=== PATIENT | female | born 1950 | race Caucasian/White ===

== ENCOUNTER 2021-02-04 12:20 | Emergency (ER) | payer OTHER, SELFPAY ==
[2021-02-04] VITALS (9 sets, daily range): BP systolic 98–125; BP diastolic 53–67; PULSE 76–104; RESP 18; TEMP 36.8; O2SAT 95–99
--- NOTE | 2021-02-04 12:54 | DI.RAD.S_ITS ---
PROCEDURE: XR RIBS RT MIN 3V W CXR 1V INDICATIONS: fall, right rib pain TECHNIQUE: 2 views of the right ribs were acquired, along with a single view chest. COMPARISON: None. FINDINGS: Surgical changes and devices: None. Bones and chest wall: No fractures or dislocations. No suspicious bony lesions. Overlying soft tissues appear unremarkable. Lungs and pleura: No pleural effusions or pneumothorax. Lungs appear clear. Mediastinum: Mediastinal contours appear normal. Heart size is normal. IMPRESSION: Mild irregularity is seen at the lateral lower right ribs, best seen on oblique view of the ribs rather than on the straight AP view. Acute rib fracture is presumed in this clinical circumstance. Dictated by: Brant Gutierrez M.D. on 02/04/2021 at 13:37 Approved by: Brant Gutierrez M.D. on 02/04/2021 at 13:38
--- NOTE | 2021-02-04 13:17 | ED_ITS ---
HPI - Fall General Chief Complaint: Fall Stated Complaint: Fall, Hit Ribs on Rt Side Time Seen by Provider: 02/04/21 12:24 Source: patient Mode of arrival: Ambulatory History of Present Illness HPI Narrative: 70-year-old female with a history of chronic pain in her left hip presents with a chief complaint of severe right-sided rib pain after a fall. She was on her bow and it rocked in the ways and threw her onto the banister. She denies any head or neck pain. She has severe right-sided rib pain. She denies any cough, hemoptysis, nausea, vomiting or diarrhea. Her pain is worse when she moves, takes a deep breath and improves with rest. Related Data Home Medications Medication Instructions Recorded Confirmed morphine 30 mg capsule mg PO 02/04/21 Previous Rx's Medication Instructions Recorded ketorolac 10 mg tablet 10 mg PO Q6H PRN #14 tab 02/04/21 lidocaine 5 % topical patch 1 patch TOP DAILY #15 each 02/04/21 (Lidoderm) Allergies Allergy/AdvReac Type Severity Reaction Status Date / Time No Known Drug Allergies Allergy Verified 02/04/21 12:54 Review of Systems Review of Systems Narrative: GENERAL: Denies chills, fatigue, malaise, fever, sweats. HEENT: Denies sinus pain, ear pain, sore throat, difficulty swallowing, dizziness. RESPIRATORY: Denies dyspnea, cough, wheezing, hemoptysis, sputum. CARDIOVASCULAR: see HPI GASTROINTESTINAL: Denies nausea, vomiting, abdominal pain, diarrhea, constipation, melena. : Denies dysuria, frequency, incontinence, hematuria, urinary retention. MUSCULOSKELETAL: denies weakness, joint pain, or bony pain SKIN: Denies rash, skin lesions, or other NEUROLOGIC: Denies weakness, headache, numbness, change in speech, confusion, seizures, incoordination. PSYCHIATRIC: No concerning psychosocial issues. 12 point review of systems is negative except for those stated above Patient History Social History Smoking Status: Never smoker Smoking Status: Never smoker alcohol intake frequency: 0-2 drinks per day Substance Use Type: does not use Exam Narrative Exam Narrative: GENERAL: [70] year old patient appears stated age. Well- developed patient, in mild distress. HEAD: Atraumatic. Normocephalic. EYES: Pupils equal round and reactive. Extraocular motions intact. No scleral icterus. No injection or drainage. ENT: Nose without bleeding, purulent drainage. Throat without erythema, tonsillar hypertrophy or exudate. Airway patent. NECK: Trachea midline. Non tender CARDIOVASCULAR: Regular rate and rhythm without murmurs, gallops, or rubs. Right lower lateral ribs tender to palpate, no crepitance, erythema or subcutaneous emphysema RESPIRATORY: Clear to auscultation. Breath sounds equal bilaterally. No wheezes, rales, or rhonchi. GASTROINTESTINAL: Abdomen soft, non-tender, nondistended. EXTREMITIES: No edema or joint tenderness. BACK: Nontender without deformity or crepitance. No flank tenderness. NEURO: AOx3. SKIN: No rash or erythema of visible areas Initial Vital Signs Initial Vital Signs: Vital Signs Temperature 98.3 F 02/04/21 12:50 Pulse Rate 76 02/04/21 12:50 Respiratory Rate 18 02/04/21 12:50 Blood Pressure 99/56 L 02/04/21 12:50 Pulse Oximetry 99 02/04/21 12:50 Course Orders Ordered: Discontinued Medications Acetaminophen (Acetaminophen 325 Mg Tablet) 650 mg PO NOW ONE Stop: 02/04/21 13:51 Last Admin: 02/04/21 14:06 Dose: 650 mg Documented by: SADAF Lidocaine (Lidocaine Patch 1 Each Adh..Patch) 1 each TOP NOW ONE Stop: 02/04/21 13:57 Last Admin: 02/04/21 14:06 Dose: 1 each Documented by: SADAF Consultations Consultation #1: Call placed to patient's pain management, message left Vital Signs Vital signs: Vital Signs - 8 hr 02/04/21 12:50 02/04/21 12:55 02/04/21 12:56 Temperature 98.3 F Pulse Rate 76 104 H Pulse Rate [Orthostatic Lying] 101 H Pulse Rate [Orthostatic Sitting] 104 H Pulse Rate [Orthostatic Standing] 104 H Respiratory Rate 18 Blood Pressure 99/56 L 117/59 L Blood Pressure [Orthostatic Lying] 125/65 Blood Pressure [Orthostatic Sitting] 117/59 L Blood Pressure [Orthostatic Standing] 98/53 L Pulse Oximetry 99 97 02/04/21 12:57 02/04/21 12:59 02/04/21 13:00 Temperature Pulse Rate 104 H 101 H 95 H Pulse Rate [Orthostatic Lying] Pulse Rate [Orthostatic Sitting] Pulse Rate [Orthostatic Standing] Respiratory Rate Blood Pressure 98/53 L 125/65 Blood Pressure [Orthostatic Lying] Blood Pressure [Orthostatic Sitting] Blood Pressure [Orthostatic Standing] Pulse Oximetry 95 95 95 02/04/21 13:30 02/04/21 14:00 02/04/21 14:14 Temperature Pulse Rate 88 84 77 Pulse Rate [Orthostatic Lying] Pulse Rate [Orthostatic Sitting] Pulse Rate [Orthostatic Standing] Respiratory Rate Blood Pressure 122/67 Blood Pressure [Orthostatic Lying] Blood Pressure [Orthostatic Sitting] Blood Pressure [Orthostatic Standing] Pulse Oximetry 96 98 98 MDM - Fall Imaging Data Chest x-ray: Radiologist's Impression: [address] [id number] ReportSigned Patient: Annie Marques BMR#: [id number]: [id number]:[id number]/Sex: 70 / FDate of Service: 02/04/21Loc: EDAccession Number: [id number] Procedure: XR ribs RT min 3V w CXR1V Ordering Provider: Keith Waite D.O. PROCEDURE: XR RIBS RT MIN 3V W CXR 1V INDICATIONS: fall, right rib pain TECHNIQUE: 2 views of the right ribs were acquired, along with a single view chest. COMPARISON: None. FINDINGS: Surgical changes and devices: None. Bones and chest wall: No fractures or dislocations. No suspicious bony lesions. Overlying soft tissues appear unremarkable. Lungs and pleura: No pleural effusions or pneumothorax. Lungs appear clear. Mediastinum: Mediastinal contours appear normal. Heart size is normal. IMPRESSION: Mild irregularity is seen at the lateral lower right ribs, best seen on oblique view of the ribs rather than on the straight AP view. Acute rib fracture is presumed in this clinical circumstance. Dictated by: Brant Gutierrez M.D. on 02/04/2021 at 13:37 Approved by: Brant Gutierrez M.D. on 02/04/2021 at 13:38 Discharge Plan Departure Patient Disposition: Home Clinical Impression: Closed rib fracture Qualifiers: Encounter type: initial encounter Rib fracture type: single rib Laterality: right Qualified Code(s): S22.31XA - Fracture of one rib, right side, initial encounter for closed fracture Instructions: How to Prevent Falls Activity Restrictions/Additional Instructions: *You have been diagnosed with [fall with right-sided rib fracture] *What to do: *Please continue to take your regular medications as directed. [x ] New medication prescriptions sent to your pharmacy: [ ] [ ] New medication written as a paper prescription [ ] No new medications given *Please follow up with your primary care provider in 2-3 days, call for an appointment. Let them know you were seen in the Emergency Department and that we ask that you be seen in follow up. We will electronically transmit a record of today's note if your PCP is in our system *If you do not have a primary care provider please contact the [facility] Resource line at [phone]. They will ask some questions about your medical history and help get you set up with a doctor in the community. *Return to Emergency Department if you should have any new, worsening or concerning symptoms, such as [fever greater than 101 F, shaking chills, worsening pain, persistent vomiting or other bothersome symptoms] Prescriptions: New ketorolac 10 mg tablet 10 mg PO Q6H PRN (Reason: pain) Qty: 14 RF: 0 lidocaine [Lidoderm] 5 % adhesive patch,medicated 1 patch TOP DAILY Qty: 15 RF: 0 No Action morphine 30 mg Capsule PO RF: 0
[2021-02-04] MEDS: LIDOCAINE PATCH 1 EACH ADH..PATCH TOP (14:06)
[2021-02-04] MEDS: ACETAMINOPHEN 325 MG TABLET 650 MG PO (14:06)
== END 2021-02-04 14:35 | disposition home or self-care (01) ==
PROVIDERS: Emergency Provider Emergency Medicine
DX: S22.31XA Fracture of one rib, right side, initial encounter for closed fracture (principal); W19.XXXA Unspecified fall, initial encounter
CPT/HCPCS: 71101; 99283; 99284